=== PATIENT | female | born 1945 | race Caucasian/White ===

== ENCOUNTER 2018-02-16 17:32 | Emergency (ER) | payer MEDICARE, OTHER ==
[~2018-02-16] VITALS: Ht 152.4 cm; Wt 75.0 kg
[2018-02-16 17:36] VITALS: BP 163/84; PULSE 86; RESP 22; TEMP 98.4; O2SAT 97
[2018-02-16] MEDS ORDERED: VENL75XR PO (18:27)
[2018-02-16] MEDS ORDERED: ZOLO50TA PO (18:27)
[2018-02-16] MEDS ORDERED: ASPI-516 CHEW (18:27)
[2018-02-16] MEDS ORDERED: OMEP40CA2 PO (18:27)
[2018-02-16] MEDS ORDERED: SPIR100T PO (18:27)
[2018-02-16] MEDS ORDERED: HYDR25TA5 PO (18:27)
[2018-02-16] MEDS ORDERED: SIMV10TA PO (18:27)
[2018-02-16] MEDS ORDERED: OXYB5TAB8 PO (18:27)
[2018-02-16] MEDS ORDERED: METF500T PO (18:27)
[2018-02-16] MEDS ORDERED: ZOLO100T PO (18:27)
[2018-02-16] MEDS ORDERED: AMIT50TA3 PO (18:27)
[2018-02-16] MEDS ORDERED: MONT10TA2 PO (18:27)
[2018-02-16] MEDS ORDERED: ALBU6.7H INH (18:27)
--- NOTE | 2018-02-16 19:10 | PD ---
HPI Chief Complaint: Cold / Flu Symptoms Time Seen by Provider: 18:57 Travel History International Travel<30 days: No Contact w/Intl Traveler<30days: No History of Present Illness HPI 72-year-old female complains of hoarseness and persistent cough. Patient states that symptoms started 3 days ago. Patient states the cough is persistent and productive. Patient complains of chest wall pain with coughing. Patient denies earache. Patient denies any sore throat. Patient denies any abdominal pain. Patient denies any nausea vomiting diarrhea. Patient denies any fever chills. Patient denies any back pain. PFSH Past Medical History Hx Anticoagulant Therapy: Yes (81MG ASA) Asthma: Yes Depression: Yes Diabetes: Yes Patient Takes Glucophage: Yes GERD: Yes Hypertension: Yes Medical other: Yes (OVERACTIVE BLADDER) Influenza Vaccination: Yes Past Surgical History Cholecystectomy: Yes Hysterectomy: Yes Social History Alcohol Use: No Tobacco Use: No Substance Use: No Allergies-Medications (Allergen,Severity, Reaction): Coded Allergies: No Known Allergies (Unverified , 02/16/18) Reported Meds & Prescriptions Reported Meds & Active Scripts Active Reported Simvastatin 10 Mg Tab 10 Mg PO DAILY Amitriptyline (Amitriptyline HCl) 50 Mg Tab 50 Mg PO HS Spironolactone 100 Mg Tab 150 Mg PO DAILY Ditropan (Oxybutynin Chloride) 5 Mg Tab 5 Mg PO DAILY Singulair (Montelukast Sodium) 10 Mg Tab 10 Mg PO HS Zoloft (Sertraline HCl) 100 Mg Tab 100 Mg PO DAILY Hydrochlorothiazide 25 Mg Tab 25 Mg PO DAILY Effexor XR 24 HR (Venlafaxine HCl) 75 Mg Cap 75 Mg PO DAILY Zoloft (Sertraline HCl) Unknown Strength Tab Unknown Dose PO BID Proventil Hfa 6.7 GM Inh (Albuterol Sulfate) 90 Mcg/Act Aer 2 Puff INH Q4-6H PRN Aspirin 81 Mg Chew 81 Mg CHEW DAILY Omeprazole 40 Mg Cap 40 Mg PO DAILY Metformin (Metformin HCl) 500 Mg Tab 500 Mg PO TIDPC Review of Systems General / Constitutional: No: Fever Eyes: No: Visual changes HENT: No: Headaches Cardiovascular: No: Chest Pain or Discomfort Respiratory: Positive: Cough, No: Shortness of Breath Gastrointestinal: No: Abdominal Pain Genitourinary: No: Dysuria Musculoskeletal: No: Pain Skin: No Rash Neurologic: No: Weakness Psychiatric: No: Depression Endocrine: No: Polydipsia Hematologic/Lymphatic: No: Easy Bruising Physical Exam Narrative GENERAL: Well-nourished, well-developed patient. SKIN: Focused skin assessment warm/dry. HEAD: Normocephalic. EYES: No scleral icterus. No injection or drainage. NECK: Supple, trachea midline. No JVD or lymphadenopathy. CARDIOVASCULAR: Regular rate and rhythm without murmurs, gallops, or rubs. RESPIRATORY: Breath sounds equal bilaterally. No accessory muscle use. Patient has mild rhonchi bibasilar. GASTROINTESTINAL: Abdomen soft, non-tender, nondistended. MUSCULOSKELETAL: No cyanosis, or edema. BACK: Nontender without obvious deformity. No CVA tenderness. Neurologic exam normal. Data Data Last Documented VS Vital Signs Date Time Temp Pulse Resp B/P (MAP) Pulse Ox O2 Delivery O2 Flow Rate FiO2 02/16/18 17:36 98.4 86 22 163/84 (110) 97 Orders Orders Chest, Single Ap (02/16/18 19:02) [facility] Medical Decision Making Medical Screen Exam Complete: Yes Emergency Medical Condition: Yes Interpretation(s) Last Impressions Chest X-Ray 02/16/181901 Signed Impressions: CONCLUSION: No active disease. Differential Diagnosis Differential diagnosis including viral laryngitis, bronchitis, pneumonia. Narrative Course 72-year-old female with hoarseness and persistent cough. Zithromax 500 mg p.o. given now. Diagnosis Primary Impression: Bronchitis Additional Impression: Laryngitis Patient Instructions: General Instructions Additional Instructions: Take medications as directed. Follow-up with personal physician. Return if worse. Med/Other Pt SpecificInfo: Prescription(s) given Scripts Benzonatate (Tessalon Perles) 100 Mg Cap 200 MG PO TID Y for COUGH, #30 CAP 0 Refills Prov: Nico Sanchez MD 02/16/18 Azithromycin (Zithromax Z-Wagner) 250 Mg Dspk 250 MG PO DIRECTED for Infection, #1 DSPK 0 Refills 500 MG (2 tabs) day 1, then 1 tab days 2-5. Prov: Nico Sanchez MD 02/16/18 Disposition: 01 DISCHARGE HOME Condition: Stable Nico Sanchez MD Feb 16, 2018 19:10
--- NOTE | 2018-02-16 19:28 | RADRPT ---
EXAM DATE: 02/16/2018 7:20 PM EDT AGE/SEX: 72 years / Female INDICATIONS: Cough and wheezing with loss of voice. CLINICAL DATA: This is the patient's initial encounter. Patient reports that signs and symptoms have been present for 3 days and indicates a pain score of 0/10. MEDICAL/SURGICAL HISTORY: Chronic obstructive pulmonary disease. None. COMPARISON: No prior exams available for comparison. FINDINGS: A single AP view of the chest demonstrates the lungs to be symmetrically aerated without evidence of mass, infiltrate or effusion. The cardiomediastinal contours are unremarkable. Osseous structures a re intact. CONCLUSION: No active disease. Electronically signed by: Chepe Pisano MD 02/16/2018 7:26 PM EDT
[2018-02-16] MEDS ORDERED: BENZ100 PO (20:42)
[2018-02-16] MEDS ORDERED: ZITHTAB PO (20:42)
[2018-02-16] MEDS ORDERED: AZITHROMYCIN 250 MG TAB PO ONE (20:45)
== END 2018-02-16 21:00 | disposition home or self-care (01) ==
LOC: NEPD 17:32
DX: J40 Bronchitis, not specified as acute or chronic (principal); J04.0 Acute laryngitis; R07.89 Other chest pain; E11.9 Type 2 diabetes mellitus without complications; F32.9 Major depressive disorder, single episode, unspecified; I10 Essential (primary) hypertension; K21.9 Gastro-esophageal reflux disease without esophagitis; Z79.82 Long term (current) use of aspirin; Z79.899 Other long term (current) drug therapy; Z79.84 Long term (current) use of oral hypoglycemic drugs
CPT/HCPCS: 71045; 99283